=== PATIENT | male | born 1975 | race Two or more races ===

== ENCOUNTER → 2021-06-16 | Outpatient (REF) | payer SELFPAY | LOC: M LAB REF 17:47 | PROVIDERS: ATTEND Internal Medicine | DX: I10 Essential (primary) hypertension (principal) ==

== ENCOUNTER → 2021-10-31 | Outpatient (REF) | payer BC ==
[2021-10-31 13:27] LABS: ALT/SGPT 88 U/L (12-78); FERRITIN 175 NG/ML (26-388); IRON (FE) 186 UG/DL (65-175); TOTAL IRON BINDING CAPACITY 358 UG/DL (250-450)
[2021-10-31 13:35] LABS: VITAMIN B12 LEVEL 363 PG/ML (247-911)
[2021-10-31 13:46] LABS: HEPATITIS B SURFACE ANTIGEN NEGATIVE (NEGATIVE)
[2021-10-31 14:13] LABS: HEPATITIS B CORE ANTIBODY IGM NEGATIVE (NEGATIVE); HEPATITIS C VIRUS ABY INDEX 0.1 INDEX (<0.8)
[2021-11-01 16:07] LABS: CERULOPLASMIN 16.3 mg/dL (16.0-31.0); ENDOMYSIAL ABY IgA Negative (Negative); TISSUE TRANSGLUTAMINASE IgA <2 U/mL (0-3)
== END ==
LOC: M LAB REF 11:52
PROVIDERS: ATTEND Internal Medicine
DX: R74.01 Elevation of levels of liver transaminase levels (principal)

== ENCOUNTER → 2021-11-14 | Outpatient (REF) | payer BC ==
[2021-11-14 15:22] LABS: FREE T3 3.5 PG/ML (2.2-4.0)
[2021-11-14 15:26] LABS: FOLLICLE STIMULATING HORMONE 7.5 mIU/mL (1.4-18.1); LUTEINIZING HORMONE 6.3 mIU/mL (1.5-9.3)
[2021-11-15 19:10] LABS: TESTOSTERONE FREE (DIRECT) 11.3 pg/mL (6.8-21.5)
== END ==
LOC: M LAB REF 14:13
PROVIDERS: ATTEND Internal Medicine
DX: E83.110 Hereditary hemochromatosis (principal); R53.83 Other fatigue

== ENCOUNTER → 2021-11-16 | Outpatient (CLI) | payer BC | LOC: M RAD 08:53 | PROVIDERS: ATTEND Internal Medicine | DX: R74.01 Elevation of levels of liver transaminase levels (principal) ==

== ENCOUNTER → 2021-12-02 | Outpatient (CLI) | payer BC ==
[~2021-12-02] MED LIST: AMLO25TA PO; HYDR-3490 PO; LIDOCAINE 1% MDV 20ML VIAL As Ordered ONE; LOSA100T45 PO
[2021-12-02 09:26] LABS: INR 1.06; PROTHROMBIN TIME 14.2 SECONDS (12.7-14.5)
[2021-12-02 11:10] VITALS: BP 144/82
== END ==
LOC: M IRPRO 08:12
PROVIDERS: ATTEND Internal Medicine
DX: R94.5 Abnormal results of liver function studies (principal); E83.119 Hemochromatosis, unspecified

== ENCOUNTER → 2022-06-27 | Outpatient (REF) | payer BC ==
[~2022-06-27] MED LIST changes: -LIDOCAINE 1% MDV 20ML VIAL As Ordered ONE
[2022-06-28 14:09] LABS: TESTOSTERONE FREE (DIRECT) 11.7 pg/mL (6.8-21.5)
== END ==
LOC: M LAB REF 11:17
PROVIDERS: ATTEND Internal Medicine
DX: R68.82 Decreased libido (principal)

== ENCOUNTER → 2023-01-03 | Outpatient (REF) | payer BC ==
[2023-01-03 17:18] LABS: PERCENT SATURATION 41.6 % (19.7-50.0)
[2023-01-03 17:20] LABS: FERRITIN 142.1 NG/ML (10.5-307.3)
== END ==
LOC: M LAB REF 16:31
PROVIDERS: ATTEND Internal Medicine
DX: E83.119 Hemochromatosis, unspecified (principal)

== ENCOUNTER → 2023-09-28 | Outpatient (REF) | payer BC ==
[~2023-09-28] MED LIST changes: -LOSA100T45 PO; +LOSA100T46 PO
[2023-09-28 12:58] LABS: PERCENT SATURATION 46.4 % (19.7-50.0)
[2023-09-28 13:01] LABS: FERRITIN 80.2 NG/ML (10.5-307.3)
== END ==
LOC: M LAB REF 11:53
PROVIDERS: ATTEND Internal Medicine
DX: E83.119 Hemochromatosis, unspecified (principal)